=== PATIENT | female | born 1990 | race Caucasian/White ===

== ENCOUNTER 2022-06-05 10:17 | Emergency (ER) | payer OTHER ==
[2022-06-05] MEDS ORDERED: SODIUM CHLORIDE 0.9% 1,000 ML IV STA (10:53)
[2022-06-05] MEDS ORDERED: methylPREDNISolone SOD SUCCI 125 MG/2 ML VIAL IV STA (10:54)
[2022-06-05] MEDS ORDERED: ALPRAZolam 1 MG TAB PO STA (10:55)
[2022-06-05] MEDS ORDERED: IBUPROFEN 600 MG TAB PO STA (10:56)
[2022-06-05] MEDS ORDERED: IPRATROPIUM-ALBUTEROL 3 ML NEB INHALATION STA (10:57)
--- NOTE | 2022-06-05 11:01 | ED ---
URI HPI - General Chief Complaint: Upper Respiratory Infection Stated Complaint: SETH Time Seen by Provider: 06/05/22 10:29 Source: patient, EMS, RN notes reviewed, old records reviewed Mode of arrival: EMS Limitations: no limitations - History of Present Illness Initial Comments: This is a well-appearing 31-year-old female that presents to the emergency room with complaints of shortness of breath for the past 2 days with chest tightness. She states she is at [facility] for withdrawal of cocaine and has been there for 2 weeks. Patient states that she did take her daily prednisone 20 mg which she has been on since she was 6 years old and her asthma ALLERGY doctor is Dr. Castrejon in [place]. She denies any fevers, no nausea vomiting or d iarrhea. She does have body aches but denies fevers. She does have history of anxiety states takes xanax 1 mg three times a day and is feeling anxious at this time requesting medication. -: days(s) (2) Severity scale (1-10): 8 Quality: other (tight) Consistency: constant Associated Symptoms: cough, chest pain, shortness of breath, other (anxiety) - Related Data Home Medications Medication Instructions Recorded Confirmed ARIPiprazole [Abilify] 5 mg PO HS 06/05/22 06/05/22 Acetaminophen Tab [Tylenol] 650 mg PO Q4H PRN MDD 3 DOSES 06/05/22 06/05/22 Albuterol Inhaler [Ventolin Hfa 2 puff INHALATION RT-Q4H PRN 06/05/22 06/05/22 Inhaler] Albuterol Nebulized [Ventolin 2.5 mg INHALATION RT-Q6H PRN 06/05/22 06/05/22 Nebulized] Calcium Carb/Mag Ox/Zinc Sulf 1 tab PO TID PRN 06/05/22 06/05/22 [Ujq-Suf-Ntcp 334-134-5 mg Tab] Chlorpheniramine Maleate 4 mg PO Q4H PRN 06/05/22 06/05/22 [Chlor-Trimeton] DULoxetine HCL [Cymbalta] 60 mg PO BID 06/05/22 06/05/22 Doxepin [SINEquan] 20 mg PO HS 06/05/22 06/05/22 Montelukast [Singulair] 10 mg PO HS 06/05/22 06/05/22 Multivitamins, Thera [Multivitamin 1 tab PO DAILY 06/05/22 06/05/22 (formulary)] Pantoprazole [Protonix] 40 mg PO BID 06/05/22 06/05/22 Prazosin HCl 2 mg PO HS 06/05/22 06/05/22 Thiamine [Vitamin B-1] 100 mg PO DAILY 06/05/22 06/05/22 busPIRone HCl [Buspar] 20 mg PO TID 06/05/22 06/05/22 guaiFENesin [guaiFENesin Oral 200 mg PO Q4H PRN 06/05/22 06/05/22 Solution] lamoTRIgine [LaMICtal] 100 mg PO HS 06/05/22 06/05/22 ondansetron HCL [Zofran] 8 mg PO Q6H PRN 06/05/22 06/05/22 predniSONE 1 dose PO DIRECTED 06/05/22 06/05/22 predniSONE [Deltasone] 20 mg PO DAILY 06/05/22 06/05/22 traZODone HCL [Desyrel] 50 - 150 mg PO HS PRN 06/05/22 06/05/22 Previous Rx's Medication Instructions Recorded predniSONE 50 mg PO DAILY #5 tab 06/05/22 Allergies Allergy/AdvReac Type Severity Reaction Status Date / Time aspirin Allergy Rash/Hives Verified 06/05/22 12:14 NSAIDS (Non-Steroidal Allergy Rash/Hives Verified 06/05/22 12:14 Anti-Inflamma shellfish derived [Shellfish] Allergy Unknown Verified 06/05/22 12:14 ibuprofen [From Motrin] AdvReac Nausea & Verified 06/05/22 12:14 Vomiting & Diarrhea Review of Systems ROS Statement: Those systems with pertinent positive or pertinent negative responses have been documented in the HPI. ROS Other: All systems not noted in ROS Statement are negative. Past Medical History Past Medical History: Asthma History of Any Multi-Drug Resistant Organisms: None Reported Past Surgical History: No Surgical Hx Reported Past Psychological History: Anxiety Smoking Status: Never smoker Past Alcohol Use History: None Reported Past Drug Use History: Cocaine General Exam Limitations: no limitations General appearance: alert, in no apparent distress Head exam: Present: atraumatic ENT exam: Present: mucous membranes moist Neck exam: Present: full ROM. Absent: tenderness, meningismus Respiratory exam: Present: wheezes. Absent: respiratory distress, rales, rhon chi, stridor, accessory muscle use Cardiovascular Exam: Present: regular rate GI/Abdominal exam: Present: soft. Absent: distended, tenderness, guarding, rebound, rigid Extremities exam: Present: normal capillary refill. Absent: pedal edema Neurological exam: Present: alert, oriented X3 Psychiatric exam: Present: anxious Skin exam: Present: warm, dry, normal color. Absent: cyanosis, diaphoretic, petechiae, pallor Course Vital Signs 06/05/22 06/05/22 06/05/22 10:25 12:56 13:04 Temperature 98 F Pulse Rate 75 98 87 Respiratory 26 H Rate Blood Pressure 124/75 O2 Sat by Pulse 95 Oximetry 06/05/22 13:49 Temperature 97.6 F Pulse Rate 68 Respiratory 18 Rate Blood Pressure 111/80 O2 Sat by Pulse 99 Oximetry Medical Decision Making - Medical Decision Making Patient presents with 2 days of cough congestion and body aches. She is positive for coronavirus. She states that she was exposed to another resident who had coronavirus. She was directed to increase her prednisone from 20 mg to 50 mg for the next 5 days. Vital signs are stable and oxygen saturation 99% on room air. No respiratory distress.She was offered Paxlovid and is agreeable to trying this medication. We did discuss taking vitamin C, vitamin D and zinc to improve immune health, Tylenol as needed for any fevers or body aches. She was instructed to return to the emergency room with any new or concerning symptoms. Case discussed with Dr. Lisa. - Lab Data Result diagrams: 06/05/22 11:08 06/05/22 11:08 Lab Results 06/05/22 06/05/22 06/05/22 Range/Units 11:08 11:08 11:08 WBC 7.3 (3.8-10.6) k/uL RBC 4.62 (3.80-5.40) m/uL Hgb 13.9 (11.4-16.0) gm/dL Hct 42.1 (34.0-46.0) % MCV 91.2 (80.0-100.0) fL MCH 30.2 (25.0-35.0) pg MCHC 33.1 (31.0-37.0) g/dL RDW 13.0 (11.5-15.5) % Plt Count 244 (150-450) k/uL MPV 7.3 Neutrophils % 83 % Lymphocytes % 8 % Monocytes % 3 % Eosinophils % 4 % Basophils % 1 % Neutrophils # 6.1 (1.3-7.7) k/uL Lymphocytes # 0.6 L (1.0-4.8) k/uL Monocytes # 0.2 (0-1.0) k/uL Eosinophils # 0.3 (0-0.7) k/uL Basophils # 0.0 (0-0.2) k/uL Sodium 139 (137-145) mmol/L Potassium 4.0 (3.5-5.1) mmol/L Chloride 107 (98-107) mmol/L Carbon Dioxide 24 (22-30) mmol/L Anion Gap 8 mmol/L BUN 7 (7-17) mg/dL Creatinine 0.64 (0.52-1.04) mg/dL Est GFR (CKD-EPI)AfAm >90 (>60 ml/min/1.73 sqM) Est GFR (CKD-EPI)NonAf >90 (>60 ml/min/1.73 sqM) Glucose 105 H (74-99) mg/dL Calcium 8.9 (8.4-10.2) mg/dL Magnesium 2.1 (1.6-2.3) mg/dL Total Bilirubin 0.8 (0.2-1.3) mg/dL AST 25 (14-36) U/L ALT 18 (4-34) U/L Alkaline Phosphatase 83 (38-126) U/L Troponin I <0.012 (0.000-0.034) ng/mL Total Protein 5.9 L (6.3-8.2) g/dL Albumin 3.6 (3.5-5.0) g/dL Urine HCG, Qual (Not Detectd) Coronavirus (PCR) (Not Detectd) 06/05/22 06/05/22 Range/Units 11:08 11:13 WBC (3.8-10.6) k/uL RBC (3.80-5.40) m/uL Hgb (11.4-16.0) gm/dL Hct (34.0-46.0) % MCV (80.0-100.0) fL MCH (25.0-35.0) pg MCHC (31.0-37.0) g/dL RDW (11.5-15.5) % Plt Count (150-450) k/uL MPV Neutrophils % % Lymphocytes % % Monocytes % % Eosinophils % % Basophils % % Neutrophils # (1.3-7.7) k/uL Lymphocytes # (1.0-4.8) k/uL Monocytes # (0-1.0) k/uL Eosinophils # (0-0.7) k/uL Basophils # (0-0.2) k/uL Sodium (137-145) mmol/L Potassium (3.5-5.1) mmol/L Chloride (98-107) mmol/L Carbon Dioxide (22-30) mmol/L Anion Gap mmol/L BUN (7-17) mg/dL Creatinine (0.52-1.04) mg/dL Est GFR (CKD-EPI)AfAm (>60 ml/min/1.73 sqM) Est GFR (CKD-EPI)NonAf (>60 ml/min/1.73 sqM) Glucose (74-99) mg/dL Calcium (8.4-10.2) mg/dL Magnesium (1.6-2.3) mg/dL Total Bilirubin (0.2-1.3) mg/dL AST (14-36) U/L ALT (4-34) U/L Alkaline Phosphatase (38-126) U/L Troponin I (0.000-0.034) ng/mL Total Protein (6.3-8.2) g/dL Albumin (3.5-5.0) g/dL Urine HCG, Qual Not Detected (Not Detectd) Coronavirus (PCR) Detected A (Not Detectd) - EKG Data EKG shows normal: sinus rhythm (Ventricular rate of 83, [place] interval 0.123, QRS 0.83, QTC 0.388) Disposition Clinical Impression: COVID-19 Disposition: HOME SELF-CARE Condition: Good Instructions (If sedation given, give patient instructions): COVID-19 (Coronavirus Disease 2019) (ED) Additional Instructions: Increase your fluid intake, take vitamin C, vitamin D and zinc to improve immune health. Tylenol as needed for fevers or body aches. I also recommend taking prednisone 50 mg a day for the next 5 days. Take the Paxlovid to shorten the duration of the illness. Return to the emergency room with a new or concerning symptoms. Prescriptions: predniSONE 50 mg PO DAILY #5 tab Is patient prescribed a controlled substance at d/c from ED?: No When asked, does pt state using other controlled substances?: No Referrals: None,Stated [Primary Care Provider] - 1-2 days Time of Disposition: 12:15
[2022-06-05 11:20] LABS: Basophils % (A) 1 %; Eosinophils # (A) 0.3 k/uL (0-0.7); Eosinophils % (A) 4 %; HCT 42.1 % (34.0-46.0); HGB 13.9 gm/dL (11.4-16.0); Lymphocytes # (A) 0.6 k/uL (1.0-4.8); Lymphocytes % (A) 8 %; MCH 30.2 pg (25.0-35.0); MCHC 33.1 g/dL (31.0-37.0); MCV 91.2 fL (80.0-100.0); Mean Platelet Volume 7.3; Monocytes # (A) 0.2 k/uL (0-1.0); Monocytes % (A) 3 %; Neutrophils # (A) 6.1 k/uL (1.3-7.7); Neutrophils % (A) 83 %; Platelet Count 244 k/uL (150-450); RBC 4.62 m/uL (3.80-5.40); WBC 7.3 k/uL (3.8-10.6)
[2022-06-05 11:37] LABS: ALT 18 U/L (4-34); AST 25 U/L (14-36); African American GFR (CKD) >90 (>60 ml/min/1.73 sqM); Albumin 3.6 g/dL (3.5-5.0); Alkaline Phosphatase 83 U/L (38-126); Anion Gap 8 mmol/L; Blood Urea Nitrogen 7 mg/dL (7-17); Calcium 8.9 mg/dL (8.4-10.2); Carbon Dioxide 24 mmol/L (22-30); Chloride 107 mmol/L (98-107); Glucose 105 mg/dL (74-99); Magnesium 2.1 mg/dL (1.6-2.3); Non-African American GFR(CKD) >90 (>60 ml/min/1.73 sqM); Sodium 139 mmol/L (137-145); Total Bilirubin 0.8 mg/dL (0.2-1.3); Total Protein 5.9 g/dL (6.3-8.2)
--- NOTE | 2022-06-05 12:11 | XR ---
EXAMINATION TYPE: XR chest 2V DATE OF EXAM: 06/05/2022 COMPARISON: NONE HISTORY: Chest pain. TECHNIQUE: Frontal and lateral views of the chest are obtained. FINDINGS: Low lung volumes are present. There is no focal air space opacity, pleural effusion, or pn eumothorax seen. The cardiac silhouette size is within normal limits. The osseous structures are i ntact. Cholecystectomy clips are noted. IMPRESSION: Low lung volumes without suspicious acute pulmonary infiltrate.
[2022-06-05 13:53] VITALS: BP 111/80; PULSE 68; RESP 18; TEMP 97.6
== END 2022-06-05 14:14 | disposition home or self-care (01) ==
LOC: EC 10:17
DX: U07.1 COVID-19 (principal); J45.909 Unspecified asthma, uncomplicated; F41.9 Anxiety disorder, unspecified; Z88.6 Allergy status to analgesic agent; Z91.013 Allergy to seafood; Z79.51 Long term (current) use of inhaled steroids; Z79.899 Other long term (current) drug therapy
CPT/HCPCS: 36415; 94640; 93005; 80053; 83735; 84484; 85025; 81025; 87635; 71046; 99285; 96374; 96361; J2930

== ENCOUNTER 2023-11-11 07:34 | Inpatient (IN) | payer MEDICARE, OTHER ==
--- NOTE | 2023-11-11 07:41 | ED ---
General Adult HPI - General Stated complaint: Asthma Time Seen by Provider: 11/11/23 07:37 Source: patient, EMS, RN notes reviewed Mode of arrival: EMS Limitations: no limitations - History of Present Illness Initial comments: 33-year-old female presents emergency department from [facility] chief complaint of asthma issues. Patient states that she started having creasing shortness of breath the last few days she was admitted to [facility] last week. Patient states she is a non-smoker denies any significant cough or cold- like symptoms. She has no GI symptoms. Patient was given DuoNeb treatment by EMS which has helped some. - Related Data Home Medications Medication Instructions Recorded Confirmed ARIPiprazole [Abilify] 5 mg PO HS 06/05/22 11/11/23 Acetaminophen Tab [Tylenol] 650 mg PO Q4H PRN MDD 4 DOSES 06/05/22 11/11/23 Albuterol Inhaler [Ventolin Hfa 2 puff INHALATION RT-Q4H PRN 06/05/22 11/11/23 Inhaler] Albuterol Nebulized [Ventolin 2.5 mg INHALATION RT-Q6H PRN 06/05/22 11/11/23 Nebulized] Thiamine [Vitamin B-1] 100 mg PO DAILY 06/05/22 11/11/23 busPIRone HCl [Buspar] 10 mg PO TID 06/05/22 11/11/23 guaiFENesin [guaiFENesin Oral 200 mg PO Q4H PRN 06/05/22 11/11/23 Solution] predniSONE [Deltasone] 20 mg PO DAILY 06/05/22 11/11/23 Calcium/Mag/Zinc/Vit D 1 tab PO TID PRN 11/11/23 11/11/23 DULoxetine HCL [Cymbalta] 30 mg PO DAILY 11/11/23 11/11/23 Zofran 4mg 4 mg IM Q6H PRN 11/11/23 11/11/23 lamoTRIgine [LaMICtal] 25 mg PO HS 11/11/23 11/11/23 Allergies Allergy/AdvReac Type Severity Reaction Status Date / Time aspirin Allergy Rash/Hives Verified 11/11/23 11:51 NSAIDS (Non-Steroidal Allergy Rash/Hives Verified 11/11/23 11:51 Anti-Inflamma shellfish derived [Shellfish] Allergy Unknown Verified 11/11/23 11:51 ibuprofen [From Motrin] AdvReac Nausea & Verified 11/11/23 11:51 Vomiting & Diarrhea Review of Systems ROS Statement: Those systems with pertinent positive or pertinent negative responses have been documented in the HPI. ROS Other: All systems not noted in ROS Statement are negative. Past Medical History Past Medical History: Asthma History of Any Multi-Drug Resistant Organisms: None Reported Past Surgical History: No Surgical Hx Reported Past Psychological History: Anxiety Smoking Status: Never smoker Past Alcohol Use History: None Reported Past Drug Use History: Cocaine General Exam Limitations: no limitations General appearance: alert, in no apparent distress Head exam: Present: atraumatic, normocephalic, normal inspection Eye exam: Present: normal appearance, PERRL, EOMI. Absent: scleral icterus, conjunctival injection, periorbital swelling Respiratory exam: Present: respiratory distress, wheezes. Absent: normal lung sounds bilaterally, rales, rhonchi, stridor Cardiovascular Exam: Present: regular rate, normal rhythm, normal heart sounds. Absent: systolic murmur, diastolic murmur, rubs, gallop, clicks GI/Abdominal exam: Present: soft, normal bowel sounds. Absent: distended, tenderness, guarding, rebound, rigid Neurological exam: Present: alert, oriented X3 Course Vital Signs 11/11/23 11/11/23 11/11/23 07:36 08:49 09:44 Temperature 97.2 F L Pulse Rate 122 H 98 95 Pulse Rate [ Pulse Oximetery ] Respiratory 18 18 Rate Blood Pressure 152/82 120/76 Blood Pressure [Right Arm] O2 Sat by Pulse 93 L 91 L Oximetry 11/11/23 11/11/23 11/11/23 13:17 13:31 14:35 Temperature Pulse Rate 92 97 80 Pulse Rate [ Pulse Oximetery ] Respiratory 18 Rate Blood Pressure 108/62 Blood Pressure [Right Arm] O2 Sat by Pulse 95 Oximetry 11/11/23 11/11/23 11/11/23 15:58 16:04 16:22 Temperature 97.9 F Pulse Rate 85 91 113 H Pulse Rate [ Pulse Oximetery ] Respiratory 22 Rate Blood Pressure 144/78 Blood Pressure [Right Arm] O2 Sat by Pulse 93 L Oximetry 11/11/23 16:35 Temperature 97.9 F Pulse Rate Pulse Rate [ 116 H Pulse Oximetery ] Respiratory 19 Rate Blood Pressure Blood Pressure 147/83 [Right Arm] O2 Sat by Pulse 91 L Oximetry Medical Decision Making - Medical Decision Making Was pt. sent in by a medical professional or institution (COLETTE Graves, HERBARI[facility] CURATOR, urgent care, hospital, or skilled nursing...) When possible be specific @ -[facility] Did you speak to anyone other than the patient for history (EMS, parent, family, police, friend...)? What history was obtained from this source @ -No Did you review nursing and triage notes (agree or disagree)? Why? @ -I reviewed and agree with nursing and triage notes Were old charts reviewed (outside hosp., previous admission, EMS record, old EKG, old radiological studies, urgent care reports/EKG's, skilled nursing records)? Report findings @ -No old charts were reviewed Differential Diagnosis (chest pain, altered mental status, abdominal pain women, abdominal pain men, vaginal bleeding, weakness, fever, dyspnea, syncope, headache, dizziness, GI bleed, back pain, seizure, CVA, palpatations, mental health, musculoskeletal)? @ -[Differential Dyspnea: Coronary syndrome, arrhythmia, tamponade, asthma, COPD, pulmonary embolism, pneumonia, pneumothorax, pulmonary effusion, anaphylaxis, diabetic ketoacidosis, flailed chest, pulmonary contusion, diaphragmatic rupture, anemia, neuromuscular, this is not meant to be an all-inclusive list. EKG interpreted by me (3pts min.). @ -None X-rays interpreted by me (1pt min.). @ -[Chest x-ray shows right perihilar and right lower lobe pneumonia CT interpreted by me (1pt min.). @ -[None done U/S interpreted by me (1pt. min.). @ -None done What testing was considered but not performed or refused? (CT, X-rays, U/S, labs)? Why? @ -None What meds were considered but not given or refused? Why? @ -None Did you discuss the management of the patient with other professionals (professionals i.e. COLETTE Graves, HERBARIUM CURATOR, lab, RT, psych nurse, social media strategist, flight crew ordnanceman, teacher, service officer, case monitor)? Give summary @ -[Dr. Ferguson for admission for pneumonia, asthma exacerbation Was smoking cessation discussed for >3mins.? @ -No Was critical care preformed (if so, how long)? @ -No Were there social determinants of health that impacted care today? How? (Homelessness, low income, unemployed, alcoholism, drug addiction, transportation, low edu. Level, literacy, decrease access to med. care, m[facility], rehab)? @ -No Was there de-escalation of care discussed even if they declined (Discuss DNR or withdrawal of care, Hospice)? DNR status @ -No What co-morbidities impacted this encounter? (DM, HTN, Smoking, COPD, CAD, Cancer, CVA, ARF, Chemo, Hep., AIDS, mental health diagnosis, sleep apnea, morbid obesity)? @ -[Asthma Was patient admitted / discharged? Hospital course, mention meds given and route, prescriptions, significant lab abnormalities, going to OR and other pertinent info. @ -Admitted patient has mild hypoxia, persistent asthma exacerbation after multiple breathing treatments, magnesium, steroids. Patient does have evidence of 2 lobe pneumonia will be started on Rocephin, azithromycin. Undiagnosed new problem with uncertain prognosis? @ -[No Drug Therapy requiring intensive monitoring for toxicity (Heparin, Nitro, Insulin, Cardizem)? @ -No Were any procedures done? @ -No Diagnosis/symptom? @ -[Pneumonia asthma exacerbation, hypoxia Acute, or Chronic, or Acute on Chronic? @ -Acute Uncomplicated (without systemic symptoms) or Complicated (systemic symptoms)? @ -[Complicated Side effects of treatment? @ -[No Exacerbation, Progression, or Severe Exacerbation? @ -No Poses a threat to life or bodily function? How? (Chest pain, [place], [place], pneumonia, PE, COPD, DKA, ARF, appy, cholecystitis, CVA, Diverticulitis, Homicidal, Suicidal, threat to staff... and all critical care pts) @ -Yes patient has pneumonia, hypoxia, asthma exacerbation - Lab Data Result diagrams: 11/11/23 07:59 11/11/23 07:59 Lab Results 11/11/23 11/11/23 11/11/23 Range/Units 07:44 07:59 07:59 WBC 10.7 H (3.8-10.6) k/uL RBC 5.10 (3.80-5.40) m/uL Hgb 14.3 (11.4-16.0) gm/dL Hct 44.3 (34.0-46.0) % MCV 86.8 (80.0-100.0) fL MCH 28.1 (25.0-35.0) pg MCHC 32.4 (31.0-37.0) g/dL RDW 13.7 (11.5-15.5) % Plt Count 231 (150-450) k/uL MPV 8.3 Neutrophils % 79 % Lymphocytes % 12 % Monocytes % 4 % Eosinophils % 4 % Basophils % 1 % Neutrophils # 8.4 H (1.3-7.7) k/uL Lymphocytes # 1.3 (1.0-4.8) k/uL Monocytes # 0.5 (0-1.0) k/uL Eosinophils # 0.4 (0-0.7) k/uL Basophils # 0.1 (0-0.2) k/uL Sodium 140 (137-145) mmol/L Potassium 3.9 (3.5-5.1) mmol/L Chloride 107 (98-107) mmol/L Carbon Dioxide 28 (22-30) mmol/L Anion Gap 5 mmol/L BUN 4 L (7-17) mg/dL Creatinine 0.49 L (0.52-1.04) mg/dL Est GFR (CKD-EPI)AfAm >90 (>60 ml/min/1.73 sqM) Est GFR (CKD-EPI)NonAf >90 (>60 ml/min/1.73 sqM) Glucose 90 (74-99) mg/dL Calcium 9.0 (8.4-10.2) mg/dL Total Bilirubin 1.2 (0.2-1.3) mg/dL AST 40 H (14-36) U/L ALT 32 (4-34) U/L Alkaline Phosphatase 54 (38-126) U/L Total Protein 6.4 (6.3-8.2) g/dL Albumin 3.6 (3.5-5.0) g/dL Influenza Type A (PCR) Not Detected (Not Detectd) Influenza Type B (PCR) Not Detected (Not Detectd) RSV (PCR) Not Detected (Not Detectd) SARS-CoV-2 (PCR) Not Detected (Not Detectd) Disposition Clinical Impression: Pneumonia, Acute asthma exacerbation Disposition: ADMITTED IP TO THIS HOSP Condition: Fair Time of Disposition: 10:20
[2023-11-11 08:07] LABS: Basophils # (A) 0.1 k/uL (0-0.2); Basophils % (A) 1 %; Eosinophils # (A) 0.4 k/uL (0-0.7); Eosinophils % (A) 4 %; HCT 44.3 % (34.0-46.0); HGB 14.3 gm/dL (11.4-16.0); Lymphocytes # (A) 1.3 k/uL (1.0-4.8); Lymphocytes % (A) 12 %; MCH 28.1 pg (25.0-35.0); MCHC 32.4 g/dL (31.0-37.0); MCV 86.8 fL (80.0-100.0); Mean Platelet Volume 8.3; Monocytes # (A) 0.5 k/uL (0-1.0); Monocytes % (A) 4 %; Neutrophils # (A) 8.4 k/uL (1.3-7.7); Neutrophils % (A) 79 %; Platelet Count 231 k/uL (150-450); RDW 13.7 % (11.5-15.5); WBC 10.7 k/uL (3.8-10.6)
[2023-11-11] MEDS: methylPREDNISolone SOD SUCCI 125 MG/2 ML VIAL IV STA (08:18)
[2023-11-11] MEDS: MAGNESIUM SULFATE-D5W PMX 1 GM in DEXTROSE/WATER 1 100ML.BAG IVPB SCH (08:18)
--- NOTE | 2023-11-11 08:21 | XR ---
EXAMINATION TYPE: XR chest 2V DATE OF EXAM: 11/11/2023 COMPARISON: 06/05/2022 TECHNIQUE: PA and lateral views submitted. HISTORY: Shortness of breath FINDINGS: Small bilateral effusion and right perihilar increased density. Limited inspiration. Surgical clips i n the right upper quadrant. No overt failure or pneumothorax. IMPRESSION: 1. Right perihilar and lower lobe infiltrate with small bilateral effusions. Follow-up to resolution recommended to exclude other etiologies.
[2023-11-11 08:23] LABS: ALT 32 U/L (4-34); AST 40 U/L (14-36); African American GFR (CKD) >90 (>60 ml/min/1.73 sqM); Albumin 3.6 g/dL (3.5-5.0); Alkaline Phosphatase 54 U/L (38-126); Anion Gap 5 mmol/L; Blood Urea Nitrogen 4 mg/dL (7-17); Carbon Dioxide 28 mmol/L (22-30); Chloride 107 mmol/L (98-107); Glucose 90 mg/dL (74-99); Non-African American GFR(CKD) >90 (>60 ml/min/1.73 sqM); Sodium 140 mmol/L (137-145); Total Bilirubin 1.2 mg/dL (0.2-1.3); Total Protein 6.4 g/dL (6.3-8.2)
[2023-11-11 08:29] LABS: Potassium 3.9 mmol/L (3.5-5.1)
[2023-11-11] MEDS: IPRATROPIUM-ALBUTEROL 3 ML NEB INHALATION STA (09:44)
[2023-11-11] MEDS ORDERED: PNEUMONIA PROTOCOL UTILIZED 1 EACH MISC PO PRN (10:18)
--- NOTE | 2023-11-11 11:46 | P.HPIM ---
History of Present Illness H&P Date: 11/11/23 Hospital course: Patient is a pleasant 33-year-old female with a past medical history of asthma, bariatric surgery with gastric sleeve in 2018, and crack cocaine abuse. She presented to the emergency department from [facility] with a chief complaint of shortness of breath. Patient reports she was experiencing shortness of breath over the past couple days and has history of asthma. She reports yesterday she began having cold/flulike symptoms with a coarse nonproductive cough, sinus congestion and drainage, chills and generalized bodyaches. Patient reports her shortness of breath significantly worsened and [facility] called EMS to take her to the emergency department for evaluation. Patient denies having known fever, diaphoresis, chest pain, palpitations, abdominal pain, nausea, vomiting, or experiencing any numbness/tingling/weakness/swelling in her extremities. She underwent full evaluation in the emergency department. Upon arrival vital signs as follows, blood pressure 152/82, heart rate 122, respiratory rate 18, temp 97.2 F, and SpO2 of 93% on room air decreasing to 91%. A chest x-ray was obtained showing right perihilar and right lower lobe infiltrate with small bilateral pleural effusions. Labs completed and reviewed. CBC showing leukocytosis with WBC count of 10.7. BMP unremarkable. Liver prof ile showing elevated AST of 40 otherwise normal findings. Influenza A, influenza B, RSV, and COVID PCR were negative. Patient was started on IV antibiotics with Rocephin and azithromycin, given a nebulizer treatment, IV steroids with Solu-Medrol 125 mg IVP x 1 dose, and 2 g of magnesium sulfate in the emergency department. She was admitted under our services with consultation to pulmonology. Physical exam: Vital signs reviewed and stable. General: Nontoxic, no distress and appears stated age. Derm: Skin warm and dry, normal coloration for ethnicity. Head: Atraumatic, normocephalic and symmetric. Eyes: EOMs intact, no lid lag, and anicteric sclera Mouth: no lip lesions, mucus membranes moist Cardiovascular: regular rate and rhythm with normal S1S2, no murmur, positive posterior tibial pulses bilaterally, and cap refill < 2 seconds. Lungs: Respirations even, regular, and unlabored on room air. Lungs diminished with diffuse expiratory wheezing throughout lungs bilaterally. Abdominal: soft, nontender to palpation, no guarding, no appreciable organomegaly Ext: ROM intact. No gross muscle atrophy, no edema, no contractures Neuro: Speech clear, face symmetrical and CN II-XII grossly intact with no noted focal neuro deficits Psych: Alert and oriented to person, place, time, and situation. Appropriate and pleasant affect. Assessment and Plan of Care: Acute hypoxic respiratory failure secondary to Asthma Exacerbation resulting from Community Aquired Pneumonia. Right perihilar and lower lobe Pneumonia SIRS secondary to above -Chest x-ray revealing right perihilar and lower lobe infiltrate with small bilateral pleural effusions. -Oxygenation to be administered and titrated as needed to maintain SPO2 equal to or greater than 92% -Monitor pulse-oximetry. -Duonebs scheduled 4 times daily and as needed for SOB and/or wheezing -Incentive Spirometry -Steroids: Solu-Medrol 60 mg IVP every 8 hours. -Antibiotics: Azithromycin 500 mg daily x 3 days and Rocephin 2 g daily. -Follow-up on blood cultures, Legionella antigen, and sputum culture Crack cocaine abuse -Pt reports last time using was last week and she has been in [facility] facility one week for assitance with sobriety. -Recommend continued cessation of use and returning to [facility] upon the discharge. Data and imaging reviewed: As stated above in HPI CODE STATUS: Full code DVT prophylaxis: Lovenox Anticipated discharge date: Likely within the next 24-[address]: Home Patient was seen independently by Nurse Pracitioner. This document was prepared using [employer] dictation software. Please allow for errors in transformation manager, while rare they do occur. Patient was seen independently by Miguel Angel RESENDIZ. I agree with the assessment and plan done by my colleague. Past Medical History Past Medical History: Asthma History of Any Multi-Drug Resistant Organisms: None Reported Past Surgical History: No Surgical Hx Reported Past Psychological History: Anxiety Smoking Status: Never smoker Past Alcohol Use History: None Reported Past Drug Use History: Cocaine Medications and Allergies Home Medications Medication Instructions Recorded Confirmed Type ARIPiprazole [Abilify] 5 mg PO HS 06/05/22 11/11/23 History Acetaminophen Tab [Tylenol] 650 mg PO Q4H PRN MDD 4 DOSES 06/05/22 11/11/23 History Albuterol Inhaler [Ventolin Hfa 2 puff INHALATION RT-Q4H PRN 06/05/22 11/11/23 History Inhaler] Albuterol Nebulized [Ventolin 2.5 mg INHALATION RT-Q6H PRN 06/05/22 11/11/23 History Nebulized] Thiamine [Vitamin B-1] 100 mg PO DAILY 06/05/22 11/11/23 History busPIRone HCl [Buspar] 10 mg PO TID 06/05/22 11/11/23 History guaiFENesin [guaiFENesin Oral 200 mg PO Q4H PRN 06/05/22 11/11/23 History Solution] predniSONE [Deltasone] 20 mg PO DAILY 06/05/22 11/11/23 History Calcium/Mag/Zinc/Vit D 1 tab PO TID PRN 11/11/23 11/11/23 History DULoxetine HCL [Cymbalta] 30 mg PO DAILY 11/11/23 11/11/23 History Zofran 4mg 4 mg IM Q6H PRN 11/11/23 11/11/23 History lamoTRIgine [LaMICtal] 25 mg PO HS 11/11/23 11/11/23 History Budesonide-Formot 160-4.5 Mcg 2 puff INHALATION BID 30 Days #1 11/13/23 Rx [Symbicort 160-4.5 Mcg Inhaler] inh predniSONE See Taper PO DIRECTED 16 Days 11/13/23 Rx #40 tab Allergies Allergy/AdvReac Type Severity Reaction Status Date / Time aspirin Allergy Rash/Hives Verified 11/11/23 11:51 NSAIDS (Non-Steroidal Allergy Rash/Hives Verified 11/11/23 11:51 Anti-Inflamma shellfish derived [Shellfish] Allergy Unknown Verified 11/11/23 11:51 ibuprofen [From Motrin] AdvReac Nausea & Verified 11/11/23 11:51 Vomiting & Diarrhea Physical Exam Vitals: Vital Signs Temp Pulse Resp BP Pulse Ox 11/11/23 09:44 95 11/11/23 08:49 98 18 120/76 91 L 11/11/23 07:36 97.2 F L 122 H 18 152/82 93 L Intake and Output 11/10/23 11/11/23 11/11/23 22:59 06:59 14:59 Other: Weight 67.585 kg Results CBC & Chem 7: 11/13/23 07:09 11/13/23 07:09 Labs: Abnormal Lab Results - Last 24 Hours (Table) 11/11/23 11/11/23 Range/Units 07:59 07:59 WBC 10.7 H (3.8-10.6) k/uL Neutrophils # 8.4 H (1.3-7.7) k/uL BUN 4 L (7-17) mg/dL Creatinine 0.49 L (0.52-1.04) mg/dL AST 40 H (14-36) U/L
[2023-11-11] MEDS: ACETAMINOPHEN TAB 325 MG TAB PO PRN (12:31)
[2023-11-11] MEDS: IPRATROPIUM-ALBUTEROL 3 ML NEB INHALATION SCH (13:17)
[2023-11-11] MEDS: AZITHROMYCIN 500 MG in SODIUM CHLORIDE 0.9% 250 ML IVPB STA (14:29)
[2023-11-11] MEDS: methylPREDNISolone SOD SUCCI 125 MG/2 ML VIAL IV SCH (16:40)
[2023-11-11] MEDS ORDERED: ZINC PO PRN (17:36)
[2023-11-11] MEDS ORDERED: CALCIUM PO PRN (17:36)
[2023-11-11] MEDS ORDERED: MAGNESIUM PO PRN (17:36)
[2023-11-11] MEDS ORDERED: CHOLECALCIFEROL PO PRN (17:36)
[2023-11-11] MEDS: DULoxetine HCL 30 MG CAPSULE.DR PO SCH (18:05)
[2023-11-11] MEDS: THIAMINE 100 MG TAB PO SCH (18:05)
[2023-11-11] MEDS: busPIRone HCl 10 MG TAB PO SCH (18:05)
[2023-11-11] MEDS: lamoTRIgine 25 MG TAB PO SCH (21:24)
[2023-11-11] MEDS: ARIPiprazole 5 MG TAB PO SCH (21:24)
--- NOTE | 2023-11-12 03:22 | P.CNPUL ---
History of Present Illness Consult date: 11/12/23 Requesting physician: Chris Reeder Reason for consult: asthma Chief complaint: shortness of breath, chest congestion, cough History of present illness: I am seeing this patient in new consultation today November 12, 2023, after being sent in from [facility] facility for suspected asthma exacerbation. Patient is a 33-year-old white female with past medical history significant for chronic bronchial asthma and polysubstance abuse including crack cocaine. She does not currently have a primary care provider. She normally uses a combination of Breo inhaler, as needed albuterol inhaler, Singulair, and is steroid-dependent. She takes 20 mg of prednisone daily. She does not use an y home oxygen. Patient was admitted to [facility] facility, she last used crack cocaine 10 days ago. While at the facility, she was noted to be short of breath. Endorses chest tightness and wheezing. She is having a cough, worse in the cooler man hours. No significant sputum production. No fevers. She does endorse substernal chest pain only with coughing. Denies any current chest pain. No prior history of CAD. Chest x-ray on arrival demonstrates right perihilar and lower lobe infiltrate, with small bilateral pleural effusions. CBC on arrival: WBC count of 10.7, hemoglobin 14.3, hematocrit 44.3, platelets 231. BMP on arrival: Sodium 140, potassium 3.9, chloride 107, serum bicarb 28, BUN 4, creatinine 0.49, glucose 90. LFTs not elevated. Negative for influenza, RSV, COVID. Patient is currently resting comfortably in bed, on room air, in no acute distress. She does have expiratory wheezes heard throughout. He has been started on combination of DuoNebs and IV Solu-Medrol. Empirically started on a combination of Rocephin and azithromycin. Currently afebrile. Vital signs are stable. Review of Systems REVIEW OF SYSTEMS: CONSTITUTIONAL: Denies any recent significant weight loss or weight gain. EYES: Denies change in vision. EARS, NOSE, MOUTH, THROAT: Denies headaches, denies sore throat. CARDIOVASCULAR: Denies radiating chest pain, palpitations or syncopal episodes. RESPIRATORY: See HPI. GASTROINTESTINAL: Denies change in appetite, abdominal pain, nausea and vomiting, or diarrhea GENITOURINARY: Denies hematuria, denies infections. MUSKULOSKELETAL: Denies pain, denies swelling. INTEGUMENTARY: Denies rash, denies eczema. NEUROLOGICAL: Denies recent memory loss, no recent seizure activity. PSYCHIATRIC: Denies anxiety, denies depression. HEMATOLOGIC/LYMPHATIC: Denies anemia, denies enlarged lymph node Past Medical History Past Medical History: Asthma History of Any Multi-Drug Resistant Organisms: None Reported Past Surgical History: No Surgical Hx Reported Past Anesthesia/Blood Transfusion Reactions: No Reported Reaction Past Psychological History: Anxiety Smoking Status: Never smoker Past Alcohol Use History: None Reported Past Drug Use History: Cocaine Medications and Allergies Home Medications Medication Instructions Recorded Confirmed Type ARIPiprazole [Abilify] 5 mg PO HS 06/05/22 11/11/23 History Acetaminophen Tab [Tylenol] 650 mg PO Q4H PRN MDD 4 DOSES 06/05/22 11/11/23 History Albuterol Inhaler [Ventolin Hfa 2 puff INHALATION RT-Q4H PRN 06/05/22 11/11/23 History Inhaler] Albuterol Nebulized [Ventolin 2.5 mg INHALATION RT-Q6H PRN 06/05/22 11/11/23 History Nebulized] Thiamine [Vitamin B-1] 100 mg PO DAILY 06/05/22 11/11/23 History busPIRone HCl [Buspar] 10 mg PO TID 06/05/22 11/11/23 History guaiFENesin [guaiFENesin Oral 200 mg PO Q4H PRN 06/05/22 11/11/23 History Solution] predniSONE [Deltasone] 20 mg PO DAILY 06/05/22 11/11/23 History Calcium/Mag/Zinc/Vit D 1 tab PO TID PRN 11/11/23 11/11/23 History DULoxetine HCL [Cymbalta] 30 mg PO DAILY 11/11/23 11/11/23 History Zofran 4mg 4 mg IM Q6H PRN 11/11/23 11/11/23 History lamoTRIgine [LaMICtal] 25 mg PO HS 11/11/23 11/11/23 History Allergies Allergy/AdvReac Type Severity Reaction Status Date / Time aspirin Allergy Rash/Hives Verified 11/11/23 11:51 NSAIDS (Non-Steroidal Allergy Rash/Hives Verified 11/11/23 11:51 Anti-Inflamma shellfish derived [Shellfish] Allergy Unknown Verified 11/11/23 11:51 ibuprofen [From Motrin] AdvReac Nausea & Verified 11/11/23 11:51 Vomiting & Diarrhea Physical Exam Vitals: Vital Signs Temp Pulse Pulse Resp BP BP Pulse Ox 11/12/23 02:00 98.7 F 79 17 137/84 92 L 11/11/23 21:39 92 11/11/23 21:32 90 11/11/23 19:05 97.8 F 97 18 129/80 93 L 11/11/23 16:35 97.9 F 116 H 19 147/83 91 L 11/11/23 16:22 97.9 F 113 H 22 144/78 93 L 11/11/23 16:04 91 11/11/23 15:58 85 11/11/23 14:35 80 18 108/62 95 11/11/23 13:31 97 11/11/23 13:17 92 11/11/23 09:44 95 11/11/23 08:49 98 18 120/76 91 L 11/11/23 07:36 97.2 F L 122 H 18 152/82 93 L Intake and Output 11/11/23 11/11/23 11/12/23 14:59 22:59 06:59 Intake Total 222 Balance 222 Intake: Oral 222 Other: Voiding Method Toilet # Voids 3 # Bowel Movements 1 Weight 67.585 kg 67.585 kg GENERAL EXAM: Alert, 33-year-old white female, appearing older than stated age, comfortable in no apparent distress. HEAD: Normocephalic and atraumatic EYES: Normal reaction of pupils, equal size. NOSE: Clear with pink turbinates. THROAT: Edentulous. No erythema or exudates. NECK: No masses, no JVD. CHEST: No chest wall deformity. LUNGS: Equal air entry with expiratory wheezes heard throughout. No crackles, rhonchi, or dullness. On room air. No conversational dyspnea or accessory muscle use while at rest.. CVS: S1 and S2 normal with no audible murmur, regular rhythm. No extra heart sounds ABDOMEN: No hepatosplenomegaly, active bowel sounds, no guarding or rigidity. SPINE: No scoliosis or deformity SKIN: No rashes CENTRAL NERVOUS SYSTEM: No focal deficits, tone is normal in all 4 extremities. EXTREMITIES: There is no peripheral edema, clubbing, or cyanosis. Peripheral pulses are intact. Results - Laboratory Findings CBC and BMP: 11/11/23 07:59 11/11/23 07:59 Abnormal lab findings: Abnormal Labs 11/11/23 11/11/23 07:59 07:59 WBC 10.7 H Neutrophils # 8.4 H BUN 4 L Creatinine 0.49 L AST 40 H - Diagnostic Findings Chest x-ray: image reviewed Assessment and Plan Assessment: Acute exacerbation of chronic bronchial asthma, secondary to possible right- sided community-acquired pneumonia. Chest x-ray on arrival demonstrates right perihilar and lower lobe infiltrate, with small bilateral pleural effusion. Acute dyspnea, secondary to above History of polysubstance abuse, including crack cocaine Plan: Patient's medications, labs, chest x-ray reviewed Currently on room air Continue combination of DuoNebs [id number] and IV Solu-Medrol Add Symbicort inhaler Empirically covered on azithromycin and ceftriaxone. Check procalcitonin level. Negative for influenza, RSV, COVID. We will continue to follow, and additional recommendations are forthcoming. I have personally seen and examined the patient, performed the documentation and the assessment and plan as written. Number of minutes spent on the visit:20 Time with Patient: Greater than 30
[2023-11-12] MEDS: IPRATROPIUM-ALBUTEROL 3 ML NEB INHALATION PRN (04:07)
[2023-11-12] MEDS: methylPREDNISolone SOD SUCCI 125 MG/2 ML VIAL IV SCH (06:27)
[2023-11-12] MEDS: SYMBICORT 160-4.5 MCG INHALER INHALATION SCH (07:58)
--- NOTE | 2023-11-12 08:27 | XR ---
EXAMINATION TYPE: XR chest 2V DATE OF EXAM: 11/12/2023 COMPARISON: 11/11/2023 TECHNIQUE: PA and lateral views submitted. HISTORY: Cough FINDINGS: A blunting of the costophrenic angles bilaterally with tiny bilateral pleural effusion. Limited inspi ration. Improved aeration right perihilar. Heart size normal and no overt failure. Osseous structure s demonstrate hypertrophic and degenerative changes of the spine. IMPRESSION: 1. Improved aeration in the right perihilum and lower lobe. 2. Tiny amount bilateral pleural effusion.
[2023-11-12] MEDS: AZITHROMYCIN 500 MG in SODIUM CHLORIDE 0.9% 250 ML IVPB SCH (10:40)
[2023-11-12] MEDS: PROCHLORPERAZINE INJ 10 MG/2 ML VIAL IVP STA (15:59)
[2023-11-12] MEDS: KETOROLAC 15 MG/ML 1 ML VIAL IVP STA (15:59)
[2023-11-12] MEDS: diphenhydrAMINE 50 MG/ML 1 ML VIAL IVP STA (15:59)
--- NOTE | 2023-11-12 16:53 | P.PN ---
Subjective Progress Note Date: 11/12/23 Hospital course: Patient is a pleasant 33-year-old female with a past medical history of asthma, bariatric surgery with gastric sleeve in 2018, and crack cocaine abuse. She presented to the emergency department from [facility] with a chief complaint of shortness of breath. Patient reports she was experiencing shortness of breath over the past couple days and has history of asthma. She reports yesterday she began having cold/flulike symptoms with a coarse nonproductive cough, sinus congestion and drainage, chills and generalized bodyaches. Patient reports her shortness of breath significantly worsened and [facility] called EMS to take her to the emergency department for evaluation. Patient denies having known fever, diaphoresis, chest pain, palpitations, abdominal pain, nausea, vomiting, or experiencing any numbness/tingling/weakness/swelling in her extremities. She underwent full evaluation in the emergency department. Upon arrival vital signs as follows, blood pressure 152/82, heart rate 122, respiratory rate 18, temp 97.2 F, and SpO2 of 93% on room air decreasing to 91%. A chest x-ray was obtained showing right perihilar and right lower lobe infiltrate with small bilateral pleural effusions. Labs completed and reviewed. CBC showing leukocytosis with WBC count of 10.7. BMP unremarkable. Liver profile showing elevated AST of 40 otherwise normal findings. Influenza A, influenza B, RSV, and COVID PCR were negative. Patient was started on IV antibiotics with Rocephin and azithromycin, given a nebulizer treatment, IV steroids with Solu-Medrol 125 mg IVP x 1 dose, and 2 g of magnesium sulfate in the emergency department. She was admitted under our services with consultation to pulmonology. Physical exam: Patient seen and fully evaluated at bedside this morning. Patient reports feeling terrible with a headache and continued shortness of breath and cough. She has been receiving scheduled breathing treatments and is on day 2 of the Zithromax and Rocephin. Vital signs reviewed and stable. General: Nontoxic, no distress and appears stated age. Derm: Skin warm and dry, normal coloration for ethnicity. Head: Atraumatic, normocephalic and symmetric. Eyes: EOMs intact, no lid lag, and anicteric sclera Mouth: no lip lesions, mucus membranes moist Cardiovascular: regular rate and rhythm with normal S1S2, no murmur, positive posterior tibial pulses bilaterally, and cap refill < 2 seconds. Lungs: Respirations even, regular, and unlabored on supplemental oxygen. Lungs diminished with diffuse expiratory wheezing throughout lungs bilaterally. Abdominal: soft, nontender to palpation, no guarding, no appreciable organomegaly Ext: ROM intact. No gross muscle atrophy, no edema, no contractures Neuro: Speech clear, face symmetrical and CN II-XII grossly intact with no noted focal neuro deficits Psych: Alert and oriented to person, place, time, and situation. Appropriate and pleasant affect. Assessment and Plan of Care: Acute hypoxic respiratory failure secondary to Asthma Exacerbation resulting from Community Aquired Pneumonia. Right perihilar and lower lobe Pneumonia SIRS secondary to above -Chest x-ray revealing right perihilar and lower lobe infiltrate with small bilateral pleural effusions. -Oxygenation to be administered and titrated as needed to maintain SPO2 equal to or greater than 92%. Patient currently on 3 L O2 via nasal cannula with SpO2 of 92%. -Monitor pulse-oximetry. -Duonebs scheduled 4 times daily and as needed for SOB and/or wheezing -Incentive Spirometry, encourage use 10-15 times hourly while awake. -Steroids: Solu-Medrol 60 mg IVP every 8 hours. -Antibiotics: Azithromycin 500 mg daily (day2/3) and Rocephin 2 g daily. -Follow-up on blood cultures -Legionella antigen is negative -Sputum culture Crack cocaine abuse -Pt reports last time using was last week and she has been in [facility] facility one week for assitance with sobriety. -Recommend continued cessation of use and returning to [facility] upon the discharge. Data and imaging reviewed: Legionella antigen is negative. Vital signs reviewed. Blood pressure 138/87, heart rate 70, respiratory rate 18, temp 97.4 F, and SpO2 of 92% on 3 L. CODE STATUS: Full code DVT prophylaxis: Lovenox Anticipated discharge date: Clinical course to determine Anticipated discharge place: Home, return to [facility] Patient was seen independently by Nurse Pracitioner. This document was prepared using [employer] dictation software. Please allow for errors in crane follower, while rare they do occur. I reviewed the documentation as provided by the ZARA above, who is the original author of this note. I agree with the documented assessment and plan, with the following changes: none Objective - Vital Signs Vital signs: Vital Signs Temp 97.4 F L 11/12/23 07:56 Pulse 82 11/12/23 08:09 Resp 18 11/12/23 07:56 BP 138/87 11/12/23 07:56 Pulse Ox 92 L 11/12/23 07:56 FiO2 Intake & Output 11/11/23 11/12/23 11/12/23 18:59 06:59 18:59 Intake Total 222 Output Total 300 Balance -78 Weight 67.585 kg Intake: Oral 222 Output: Urine 300 Other: Voiding Method Toilet # Voids 3 # Bowel Movements 1 - Labs CBC & Chem 7: 11/13/23 07:09 11/13/23 07:09 Labs: Abnormal Lab Results - Last 24 Hours (Table) 11/11/23 Range/Units 07:59 BUN 4 L (7-17) mg/dL Creatinine 0.49 L (0.52-1.04) mg/dL AST 40 H (14-36) U/L
[2023-11-12 16:54] VITALS: RESP 16
[2023-11-13] MEDS: BUTALB/APAP/CAFF 50-325-40MG TAB PO STA (03:58)
[2023-11-13 08:55] LABS: HCT 42.6 % (34.0-46.0); HGB 13.5 gm/dL (11.4-16.0); Hypochromasia Slight; MCH 28.3 pg (25.0-35.0); MCHC 31.7 g/dL (31.0-37.0); MCV 89.3 fL (80.0-100.0); Mean Platelet Volume 9.3; Platelet Count 222 k/uL (150-450); RBC 4.77 m/uL (3.80-5.40); RDW 13.7 % (11.5-15.5); WBC 17.3 k/uL (3.8-10.6)
[2023-11-13] MEDS: predniSONE 20 MG TAB PO SCH (09:06)
--- NOTE | 2023-11-13 11:07 | P.PN ---
Subjective Progress Note Date: 11/13/23 I am seeing this patient in new consultation today November 12, 2023, after being sent in from [facility] facility for suspected asthma exacerbation. Patient is a 33-year-old white female with past medical history significant for chronic bronchial asthma and polysubstance abuse including crack cocaine. She does not currently have a primary care provider. She normally uses a combination of Breo inhaler, as needed albuterol inhaler, Singulair, and is steroid-dependent. She takes 20 mg of prednisone daily. She does not use any home oxygen. Patient was admitted to [facility] facility, she last used crack cocaine 10 days ago. While at the facility, she was noted to be short of breath. Endorses chest tightness and wheezing. 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 No significant sputum production. No fevers. She does endorse substernal chest pain only with coughing. Denies any current chest pain. No prior history of CAD. Chest x-ray on arrival demonstrates right perihilar and lower lobe infiltrate, with small bilateral pleural effusions. CBC on arrival: WBC count of 10.7, hemoglobin 14.3, hematocrit 44.3, platelets 231. BMP on arrival: Sodium 140, potassium 3.9, chloride 107, serum bicarb 28, BUN 4, creatinine 0.49, glucose 90. LFTs not elevated. Negative for influenza, RSV, COVID. Patient is currently resting comfortably in bed, on room air, in no acute distress. She does have expiratory wheezes heard throughout. He has been started on combination of DuoNebs and IV Solu-Medrol. Empirically started on a combination of Rocephin and azithromycin. Currently afebrile. Vital signs are stable. The patient is seen today November 13, 2023 in follow-up on the regular medical floor. She is currently sitting up in bed. Awake and alert in no acute distress. She is maintaining O2 saturations in the 90s on room air. She has normal saline at KVO. White count 17.3. Hemoglobin 13.5. Platelets 222. Procalcitonin was 0.05. Legionella screen negative. Follow-up chest x-ray revealed improved aeration in the right perihilar and lower lobe. Culture revealed no growth. Sputum culture reveals no growth. She is currently on DuoNeb ventilations, Symbicort, Solu-Medrol. Antibiotics in the form of azithromycin and ceftriaxone. Objective - Vital Signs Vital signs: Vital Signs Temp 98.0 F 11/13/23 07:27 Pulse 68 11/13/23 07:54 Resp 16 11/13/23 07:27 BP 125/76 11/13/23 07:27 Pulse Ox 95 11/13/23 07:27 FiO2 Intake & Output 11/12/23 11/13/23 11/13/23 18:59 06:59 18:59 Intake Total 1080 Balance 1080 Intake: Oral 1080 Other: Voiding Method Toilet Toilet # Voids 2 2 - Exam GENERAL EXAM: Alert, active, 33-year-old female, on room air, comfortable in no apparent distress. HEAD: Normocephalic. EYES: Normal reaction of pupils, equal size. NOSE: Clear with pink turbinates. THROAT: No erythema or exudates. NECK: No masses, no JVD. CHEST: No chest wall deformity. LUNGS: Equal air entry with few scattered rhonchi. CVS: S1 and S2 normal with no audible murmur, regular rhythm. ABDOMEN: No hepatosplenomegaly, normal bowel sounds, no guarding or rigidity. SPINE: No scoliosis or deformity SKIN: No rashes CENTRAL NERVOUS SYSTEM: No focal deficits, tone is normal in all 4 extremities. EXTREMITIES: There is no peripheral edema. No clubbing, no cyanosis. Per ipheral pulses are intact. - Labs CBC & Chem 7: 11/13/23 07:09 11/11/23 07:59 Labs: Abnormal Lab Results - Last 24 Hours (Table) 11/13/23 Range/Units 07:09 WBC 17.3 H (3.8-10.6) k/uL Microbiology - Last 24 Hours (Table) 11/12/23 06:15 Gram Stain - Preliminary Sputum Sputum Culture - Preliminary 11/11/23 12:00 Blood Culture - Preliminary Blood 11/11/23 12:21 Blood Culture - Preliminary Blood Assessment and Plan Assessment: Acute exacerbation of chronic bronchial asthma. Procalcitonin 0.05. Antibiotics discontinued. Chest x-ray reveals improvement Acute dyspnea, secondary to above History of polysubstance abuse, including crack cocaine Plan: The patient was seen and evaluated Chest x-ray, labs and medications reviewed Procalcitonin negative Discontinue antibiotics Discontinue IV Solu-Medrol Completed prednisone taper Continue Symbicort and albuterol Cleared for discharge from the pulmonary standpoint Plan is to transfer back to [facility] This patient was seen independently by the pulmonary nurse practitioner addressing pulmonary issues I have personally seen and examined the patient, performed the documentation and the assessment and plan as written. Number of minutes spent on the visit: 24.
[2023-11-13 11:19] LABS: BUN/Creat Ratio 29.67 Ratio (12.00-20.00); Blood Urea Nitrogen 17.8 mg/dL (9.0-27.0); Chloride 107 mmol/L (96-109); Glucose 115 mg/dL (70-110); Magnesium 2.2 mg/dL (1.5-2.4); Potassium 4.6 mmol/L (3.5-5.5); Sodium 141 mmol/L (135-145)
[2023-11-13 11:20] LABS: ALT 19 U/L (8-44); AST 13 U/L (13-35); Albumin 3.4 g/dL (3.8-4.9); Albumin/Globulin Ratio 1.55 Ratio (1.60-3.17); Alkaline Phosphatase 56 U/L (41-126); Globulin 2.2 g/dL (1.6-3.3); Total Bilirubin 0.5 mg/dL (0.3-1.2); Total Protein 5.6 g/dL (6.2-8.2)
[2023-11-13 12:05] VITALS: PULSE 72
--- NOTE | 2023-11-13 12:07 | CDI ---
Documentation Clarification Form Date: 11/13/2023 11:39:03 AM From: Leesa Gomez RN CCDS Phone: [phone] Admit Date: 11/11/2023 11:30:00 AM Patient Name: Michelle Navarro Visit Number: [id number] Discharge Date: ATTENTION: The Clinical Documentation Specialists (CDI) and [facility] Coding Staff appreciate your assistance in clarifying documentation. Please respond to the clarification below the line at the bottom and electronically sign. The CDI & [facility] Coding staff will review the response and follow-up if needed. Please note: Queries are made part of the Legal Health Record. If you have any questions, please contact the author of this message via ITS. Dr. Imani Weinstein Acute hypoxic respiratory failure is documented 11/11, H&P which may lack sufficient clinical evidence/support in the medical record. Additional clarification is requested. History/Risk Factors: 33 year old female presents to the ED from [place] with shortness of breath. Cold/flulike symptoms with coarse nonproductive cough, sinus congestion and drainage with chills and body aches. Medical History: Crack cocaine abuse, Asthma and bariatric surgery. 11/11, H&P. Clinical Indicators: CXR, 11/11: Right perihilar and lower lobe infiltrate with small bilateral effusions. CXR, 11/12: Improved aeration in the right perihilum and lower lobe. Tiny amount bilateral pleural effusion. Lung exam, 11/11, H&P: Respirations even, regular and unlabored on room air. Lungs diminished with diffuse expiratory wheezing throughout lungs bilaterally. Lung exam, 11/12, Medicine note: Respirations even, regular, and unlabored on supplemental oxygen. Lungs diminished with diffuse expiratory wheezing throughout lungs bilaterally Spo2 and Respirations: 11/11 07:36 93% room air, RR 18; 11/11 08:49 91% room air, RR 18; 11/11 19:05 93% room air, RR 18. 11/12 02:00 92% 2L nasal cannula, RR 17; 11/12 07:56 92% 3L nasal cannula. 11/12 12:00 92% room air, RR 17 11/13 07:27 95% room air, RR 16 Treatment: Oxygen 11/12 02:00 11/12 07:56 2L nasal cannula; Oxygen; 11/12 07:56 11/12 12:00 3L nasal cannula Please clarify if Acute hypoxic respiratory failure is a valid diagnosis? [ X] Yes, Acute hypoxic respiratory failure is present as evidence by (additional clinical support): [ ] No, Acute hypoxic respiratory failure is ruled out [ ] Other (please specify diagnosis) [ ] Unable to determine (Template Last Revised: November 2020) MTDD
--- NOTE | 2023-11-13 13:01 | P.DS ---
Providers Date of admission: 11/11/23 11:30 Expected date of discharge: 11/13/23 Attending physician: Oc Ferguson MD Consults: 11/11/23 10:24 Consult Physician Urgent Consulting Provider: Clifford Hernandez Reason/Comments: Pneumonia, asthma exacerbation Do you want consulting provider notified?: Yes Primary care physician: Stated None Hospital Course: Discharge Diagnosis: Acute Asthma Exacerbation. Patient discharged home with Symbicort inhaler and extended prednisone taper, she is to continue albuterol nebulizer treatments every 6 hours as needed for shortness of breath and/or Ventolin inhaler 2 puffs every 4 hours as needed for shortness of breath and/or wheezing. Patient to follow-up outpatient with study assistant after discharge from [place]. Patient discharged back to [facility] at this time. Acute hypoxic respiratory failure, resolved. Overnight on 11/11 through 11/12 the patient reportedly became hypoxic desaturating down into the 80s requiring placement on 3 L O2 via nasal cannula improving SpO2 to 92%. Patient successfully weaned off of oxygen Right perihilar and lower lobe consolidation, pneumonia ruled out. Pt received 2-day course of azithromycin and Rocephin, procalcitonin was negative at 0.05 and antibiotics were discontinued. Crack cocaine abuse-Recommend continued cessation of use and returning to [facility] upon the discharge. Hospital Course: Patient is a pleasant 33-year-old female with a past medical history of asthma, bariatric surgery with gastric sleeve in 2018, and crack cocaine abuse. She presented to the emergency department from [place] with a chief complaint of shortness of breath. Patient reports she was experiencing shortness of breath over the past couple days and has history of asthma. She reports yesterday she began having cold/flulike symptoms with a coarse nonproductive cough, sinus congestion and drainage, chills and generalized bodyaches. Patient reports her shortness of breath significantly worsened and [facility] called EMS to take her to the emergency department for evaluation. Patient denies having known fever, diaphoresis, chest pain, palpitations, abdominal pain, nausea, vomiting, or experiencing any numbness/tingling/weakness/swelling in her extremities. She underwent full evaluation in the emergency department. Upon arrival vital signs as follows, blood pressure 152/82, heart rate 122, respiratory rate 18, temp 97.2 F, and SpO2 of 93% on room air decreasing to 91%. A chest x-ray was obtained showing right perihilar and right lower lobe infiltrate with small bilateral pleural effusions. Labs completed and reviewed. CBC showing leukocytosis with WBC count of 10.7. BMP unremarkable. Liver profile showing elevated AST of 40 otherwise normal findings. Influenza A, influenza B, RSV, and COVID PCR were negative. Patient was started on IV antibiotics with Rocephin and azithromycin, given a nebulizer treatment, IV steroids with Solu-Medrol 125 mg IVP x 1 dose, and 2 g of magnesium sulfate in the emergency department. She was admitted under our services with consultation to pulmonology. Overnight on 11/11 through 11/12 the patient reportedly became hypoxic desaturating down into the 80s requiring placement on 3 L O2 via nasal cannula improving SpO2 to 92%. Patient received supplemental oxygen, scheduled DuoNebs and steroids. She received 2-day course of azithromycin and Rocephin, procalcitonin was negative at 0.05 and antibiotics were discontinued. Patient was followed by study assistant throughout hospitalization and cleared from pulmonary perspective for discharge. Patient has been successfully weaned off of oxygen and vital signs stable. Patient is medically stable for discharge at this time. Vital signs at time of discharge show blood pressure 112/71, heart rate 72, respiratory rate 16, temp 98.2 F, and SpO2 of 94% on room air. Patient discharged home with Symbicort inhaler and extended prednisone taper, she is to continue albuterol nebulizer treatments every 6 hours as needed for shortness of breath and/or Ventolin inhaler 2 puffs every 4 hours as needed for shortness of breath and/or wheezing. Patient to follow-up outpatient with study assistant after discharge from [place]. Patient discharged back to [facility] at this time. Physical exam: Vital signs reviewed and stable. General: Nontoxic, no distress and appears stated age. Derm: Skin warm and dry, normal coloration for ethnicity. Head: Atraumatic, normocephalic and symmetric. Eyes: EOMs intact, no lid lag, and anicteric sclera Mouth: no lip lesions, mucus membranes moist Cardiovascular: regular rate and rhythm with normal S1S2, no murmur, positive posterior tibial pulses bilaterally, and cap refill < 2 seconds. Lungs: Respirations even, regular, and unlabored on supplemental oxygen. Lungs diminished with diffuse expiratory wheezing throughout lungs bilaterally. Abdominal: soft, nontender to palpation, no guarding, no appreciable organomegaly Ext: ROM intact. No gross muscle atrophy, no edema, no contractures Neuro: Speech clear, face symmetrical and CN II-XII grossly intact with no noted focal neuro deficits Psych: Alert and oriented to person, place, time, and situation. Appropriate and pleasant affect. A total of 32 minutes of time were spent preparing this complex discharge summary. Pt was discharged on 11/13/2023 at 12:58 PM. Patient was seen independently by Nurse Practitioner. This document was prepared using [employer] dictation software. Please allow for errors in supervisor marble while rare they do occur. Romel Michelle NP rendered care for this patient independently, reviewed the findings and plan as documented in the note above. I did not physically speak with or examine the patient on this date. I reviewed the documentation as provided by the ZARA above, who is the original author of this note. I agree with the documented assessment and plan, with the following changes: none Patient Condition at Discharge: Stable Plan - Discharge Summary Discharge Rx Participant: Yes New Discharge Prescriptions: New Budesonide-Formot 160-4.5 Mcg [Symbicort 160-4.5 Mcg Inhaler] 2 puff INHALATION BID 30 Days #1 inh predniSONE See Taper PO DIRECTED 16 Days #40 tab Continue Thiamine [Vitamin B-1] 100 mg PO DAILY Albuterol Nebulized [Ventolin Nebulized] 2.5 mg INHALATION RT-Q6H PRN PRN Reason: Shortness Of Breath Calcium/Mag/Zinc/Vit D 1 tab PO TID PRN PRN Reason: CRAMPS Zofran 4mg 4 mg IM Q6H PRN PRN Reason: Nausea And Vomiting Acetaminophen Tab [Tylenol] 650 mg PO Q4H PRN MDD 4 DOSES PRN Reason: Pain Or Fever > 100.5 guaiFENesin [guaiFENesin Oral Solution] 200 mg PO Q4H PRN PRN Reason: Congestion busPIRone HCl [Buspar] 10 mg PO TID Albuterol Inhaler [Ventolin Hfa Inhaler] 2 puff INHALATION RT-Q4H PRN PRN Reason: Shortness Of Breath ARIPiprazole [Abilify] 5 mg PO HS lamoTRIgine [LaMICtal] 25 mg PO HS DULoxetine HCL [Cymbalta] 30 mg PO DAILY No Action predniSONE [Deltasone] 20 mg PO DAILY Discharge Medication List ARIPiprazole [Abilify] 5 mg PO HS 06/05/22 [History] Acetaminophen Tab [Tylenol] 650 mg PO Q4H PRN MDD 4 DOSES 06/05/22 [History] Albuterol Inhaler [Ventolin Hfa Inhaler] 2 puff INHALATION RT-Q4H PRN 06/05/22 [History] Albuterol Nebulized [Ventolin Nebulized] 2.5 mg INHALATION RT-Q6H PRN 06/05/22 [History] Thiamine [Vitamin B-1] 100 mg PO DAILY 06/05/22 [History] busPIRone HCl [Buspar] 10 mg PO TID 06/05/22 [History] guaiFENesin [guaiFENesin Oral Solution] 200 mg PO Q4H PRN 06/05/22 [History] predniSONE [Deltasone] 20 mg PO DAILY 06/05/22 [History] Calcium/Mag/Zinc/Vit D 1 tab PO TID PRN 11/11/23 [History] DULoxetine HCL [Cymbalta] 30 mg PO DAILY 11/11/23 [History] Zofran 4mg 4 mg IM Q6H PRN 11/11/23 [History] lamoTRIgine [LaMICtal] 25 mg PO HS 11/11/23 [History] Budesonide-Formot 160-4.5 Mcg [Symbicort 160-4.5 Mcg Inhaler] 2 puff INHALATION BID 30 Days #1 inh 11/13/23 [Rx] predniSONE See Taper PO DIRECTED 16 Days #40 tab 11/13/23 [Rx] Follow up Appointment(s)/Referral(s): Clifford Hernandez DO [Doctor of Osteopathic Medicine] - 1 Week None,Stated [Primary Care Provider] - 1-2 days (please make appointment with a primary care physician for follow-up. ) Patient Instructions/Handouts: Asthma (DC), Medical Clearance for Substance Abuse Treatment (DC) Activity/Diet/Wound Care/Special Instructions: Nurse to call [facility] for a ride for the pt when d/c - Activity: As tolerated. Take breaks as needed. Diet: Resume regular diet. Special Instructions: Strongly avoid any and all drug/cocaine use. Truly wishing you the best of luck on your journey toward sobriety! Thank you for allowing us to participate in your care, it was truly a pleasure having you for our patient!!! Recommend follow up with study assistant [facility]. Discharge Disposition: HOME SELF-CARE
[2023-11-13 13:40] VITALS: BP 112/71; TEMP 98.2
== END 2023-11-13 14:30 | disposition home or self-care (01) | DRG 202 ==
LOC: EC 07:34 → 5NMEDONC 11:30
PROVIDERS: ADMIT Student in an Organized Health Care Education/Training Program; ATTEND Student in an Organized Health Care Education/Training Program
DX: J45.901 Unspecified asthma with (acute) exacerbation (principal); J96.01 Acute respiratory failure with hypoxia; F14.10 Cocaine abuse, uncomplicated; F41.9 Anxiety disorder, unspecified; Z71.51 Drug abuse counseling and surveillance of drug abuser; Z79.899 Other long term (current) drug therapy; Z98.84 Bariatric surgery status; Z79.52 Long term (current) use of systemic steroids; Z88.6 Allergy status to analgesic agent; Z91.013 Allergy to seafood
CPT/HCPCS: 36415; 71046; 80053; 83735; 84145; 84484; 85025; 85027; 87040; 87070; 87205; 87449; 87636; 94640; 96365; 96375; 99285